=== PATIENT | male | born 1955 | race Caucasian/White ===

== ENCOUNTER 2017-06-26 10:20 | Emergency (ER) | payer OTHER, SELFPAY ==
[2017-06-26] MEDS ORDERED: METHYLPREDNISOLONE 125 MG INJ ONE (11:00)
[2017-06-26] MEDS ORDERED: Magnesium Sulfate 2gm IVPB 2 G/50 ML BAG IV ONE (11:01)
[2017-06-26] MEDS ORDERED: IPRATROPIUM BROM 0.5MG/2.5ML ONE (11:01)
[2017-06-26] MEDS ORDERED: LEVALBUTEROL 1.25 MG/3 ML NEB ONE (11:01)
[2017-06-26 11:52] LABS: Absolute Lymphocytes (CBC) 0.7 K/uL (0.7-4.9); Absolute Monocytes 1.9 K/uL (0.1-1.3); Absolute Neutrophil 8.3 K/uL (1.8-8.0); Basophils % 0.1 % (0-1.3); Bicarbonate 27 mEq/L (21-31); Eosinophils % 0.1 % (0-4.4); Glucose Level 112 mg/dL (65-120); Hematocrit 44.7 % (39.6-49.0); Lymphocytes % 6.1 % (15.3-44.8); MCH 30.1 pg (27.0-35.0); MCV 90.1 fL (80-100); MPV 8.4 fL (7.6-11.3); Monocytes % 17.1 % (3.3-12.3); Potassium 3.7 mEq/L (3.6-5.0); RBC Red Blood Cell Count 4.96 M/uL (4.33-5.43); Sodium Level 126 mEq/L (135-145)
[2017-06-26 11:53] LABS: BUN Blood Urea Nitrogen 6 mg/dL (6-20)
--- NOTE | 2017-06-26 12:17 | RAD REPORT ---
EXAM DESCRIPTION: RAD - Chest Pa And Lat (2 Views) - 06/26/2017 12:10 pm CLINICAL HISTORY: COPD, shortness of breath, history of fall with chest pain COMPARISON: July 2016 TECHNIQUE: PA and lateral views of the chest were obtained. FINDINGS: The lungs are fibrotic as a baseline. Diaphragm is flattened with increased retrosternal s pace. No focal consolidation or mass. Failure not suspected. Interstitial pattern is not significantl y different from 11 months earlier. Heart size is normal and central vasculature is within normal l imits. No pleural effusion or pneumothorax seen. No acute bony finding noted. No aortic abnormalit y. IMPRESSION: Moderate COPD pattern with no focal infiltrate or pneumothorax. Lung markings are not significantly different from July 23, 2016.
--- NOTE | 2017-06-26 12:46 | ER ---
Nurse's Notes [facility] Name: Nghia Courtney Age: 61 yrs Sex: Male : 1955 Arrival Date: 06/26/2017 Time: 10:23 Bed 17 Private MD: Diagnosis: Chronic obstructive pulmonary disease with (acute) exacerbation;Pain in left shoulder;Hyponatremia - chronic Presentation: 06/26 10:27 Presenting complaint: Patient states: I was seen in ER in [place] and after a fall and had la1 negative XRAYs and CT's. They told me to F/U with an ortho doc but I left before my apt so I am here to F/U. I also need my RX for my COPD refilled. Transition of care: patient was not received from another setting of care. Onset of symptoms was June 26, 2017. Care prior to arrival: None. 10:27 Method Of Arrival: Ambulatory la1 10:27 Acuity: HERRERA 3 la1 Triage Assessment: 13:34 General: Appears in no apparent distress. uncomfortable. General: Behavior is calm, em cooperative. Respiratory: the patient has mild shortness of breath. Respiratory: Historical: - Allergies: 10:30 NKDA; la1 - PMHx: 10:30 COPD; la1 - Immunization history:: Adult Immunizations up to date. - Social history:: Smoking status: Patient uses tobacco products, smokes one pack cigarettes per day. Screenin:50 Abuse screen: Denies threats or abuse. em 11:50 Nutritional screening: No deficits noted. Tuberculosis screening: No symptoms or risk em factors identified. Fall Risk None identified. Assessment: 10:50 General: Appears in no apparent distress. uncomfortable, Behavior is calm, cooperative. em General: Reports missed follow up appointment with orthopedic, c/o left shoulder pain, also needs inhaler refilled. Pain: Complains of pain in left shoulder Pain currently is 8 out of 10 on a pain scale. Pain began 1 month ago. Neuro: Level of Consciousness is awake, alert, obeys commands, Oriented to person, place, time, situation. Cardiovascular: Heart tones S1 S2 present Capillary refill < 3 seconds Patient's skin is warm and dry. Rhythm is regular. Respiratory: Reports shortness of breath cough that is productive, Airway is patent Respiratory effort is even, unlabored, Respiratory pattern is regular, symmetrical, Breath sounds with wheezes bilaterally. GI: Abdomen is flat. : No signs and/or symptoms were reported regarding the genitourinary system. EENT: No signs and/or symptoms were reported regarding the EENT system. Derm: Skin is intact, Skin is pink, warm \T\ dry. Musculoskeletal: Range of motion: intact in all extremities. 11:20 Reassessment: Patient appears in no apparent distress at this time. I agree with above iw assessment by Carlos Garza LVN. 11:50 Reassessment: Patient appears in no apparent distress at this time. Patient and/or em family updated on plan of care and expected duration. Pain level reassessed. Patient is alert, oriented x 3, equal unlabored respirations, skin warm/dry/pink. Patient states symptoms have improved. 12:45 Reassessment: Patient appears in no apparent distress at this time. Patient and/or em family updated on plan of care and expected duration. Pain level reassessed. Patient is alert, oriented x 3, equal unlabored respirations, skin warm/dry/pink. 13:00 Reassessment: Patient appears in no apparent distress at this time. awaiting for em magnesium to be completed, pt ready for discharge. Vital Signs: 10:30 BP 143 / 95; Pulse 120; Resp 20; Temp 98.6; Pulse Ox 93% on R/A; Weight 68.04 kg; la1 Height 6 ft. 1 in. (185.42 cm); 10:44 BP 141 / 97; Pulse 124; Resp 20; Pulse Ox 94% on R/A; mh5 11:44 BP 119 / 85; Pulse 119; Resp 22; Pulse Ox 98% ; mh5 12:50 BP 108 / 72; Pulse 117; Resp 20; Pulse Ox 93% on R/A; Pain 0/10; em 10:30 Body Mass Index 19.79 (68.04 kg, 185.42 cm) la1 ED Course: 10:23 Patient arrived in ED. tw3 10:29 Triage completed. la1 10:30 Arm band placed on left wrist. la1 10:41 Carlos Garza LVN is Primary Nurse. em 10:44 Dea Uribe FNP-C is PHCP. kb 10:44 Sarmad De La Vega MD is Attending Physician. kb 12:05 X-ray completed. Patient tolerated procedure well. kp1 12:06 Chest Pa And Lat (2 Views) XRAY In Process Unspecified. EDMS 12:30 Patient has correct armband on for positive identification. Placed in gown. Bed in low em position. Call light in reach. Side rails up X2. 12:30 No provider procedures requiring assistance completed. Inserted saline lock: 20 gauge em in right forearm, using aseptic technique. Blood collected. 12:30 Initial lab(s) drawn, by me, sent to lab. em 13:35 IV discontinued, intact, bleeding controlled, No redness/swelling at site. Pressure em dressing applied. Administered Medications: 11:10 Drug: Xopenex (3) 1.25 mg Route: Inhalation; em 11:50 Follow up: Response: No adverse reaction em 11:10 Drug: AtroVENT Aerosol 0.5 mg Route: Inhalation; em 11:50 Follow up: Response: No adverse reaction em 11:11 Drug: Magnesium Sulfate 2 grams Route: IVPB; Infused Over: 2 hrs; Site: right forearm; iw 13:35 Follow up: IV Status: Completed infusion; IV Intake: 50ml em 11:11 Drug: SOLU-Medrol 125 mg Route: IVP; Site: right forearm; iw 11:51 Follow up: Response: No adverse reaction em Intake: 13:35 IV: 50ml; Total: 50ml. em Outcome: 12:45 Discharge ordered by MD. kb 13:38 Discharged to home ambulatory. em 13:38 Condition: good 13:38 Discharge instructions given to patient, Instructed on discharge instructions, follow up and referral plans. medication usage, Demonstrated understanding of instructions, follow-up care, medications, Prescriptions given X 2. 13:39 Patient left the ED. em Signatures: Dispatcher [employer] EDMS Dea Uribe, MACHINE ROOM ENGINEER-C MACHINE ROOM ENGINEER-Ckb Carlos Garza, MANAGER SKILLED MANAGER SKILLED em Cathryn Restrepo, LORENE PAULSON iw Winston Garcia RN RN la1 Imelda Aguilera Katarina Thomas, Marilu tw3 Gissell Hampton kp1
--- NOTE | 2017-06-26 12:46 | EDPHYS ---
Physician Documentation [facility] Name: Nghia Courtney Age: 61 yrs Sex: Male : 1955 Arrival Date: 06/26/2017 Time: 10:23 Bed 17 Private MD: ED Physician Sarmad De La Vega HPI: 06/26 12:40 This 61 yrs old Male presents to ER via Ambulatory with complaints of Arm kb Pain, Breathing Difficulty. 12:40 The patient has shortness of breath with light activity. Duration: The symptoms are kb chronic. The patient's shortness of breath is aggravated by exertion, is alleviated by nothing. Associated signs and symptoms: Pertinent positives: non-productive cough. Severity of symptoms: At their worst the symptoms were mild moderate in the emergency department the symptoms are unchanged. The patient has experienced similar episodes in the past, chronically. The patient has not recently seen a physician. Pt states he has had shoulder pain for a month that he was given hydrocodone for in [place], but he only has 2 pills left and needs a refill. Also reports he is almost out of his inhaler and needs a new one. . Historical: - Allergies: 10:30 NKDA; la1 - PMHx: 10:30 COPD; la1 - Immunization history:: Adult Immunizations up to date. - Social history:: Smoking status: Patient uses tobacco products, smokes one pack cigarettes per day. ROS: 11:56 Constitutional: Negative for fever, chills, and weight loss, ENT: Negative for injury, kb pain, and discharge, Neck: Negative for injury, pain, and swelling, Cardiovascular: Negative for chest pain, palpitations, and edema, Abdomen/GI: Negative for abdominal pain, nausea, vomiting, diarrhea, and constipation, Back: Negative for injury and pain, : Negative for injury, bleeding, discharge, and swelling, Skin: Negative for injury, rash, and discoloration, Neuro: Negative for headache, weakness, numbness, tingling, and seizure. 11:56 Respiratory: Positive for cough, with no reported sputum, dyspnea on exertion, shortness of breath, wheezing, Negative for hemoptysis, orthopnea, pleurisy. 11:56 MS/extremity: Positive for decreased range of motion, pain, of the anterior aspect of left shoulder. Exam: 12:36 Constitutional: This is a well developed, well nourished patient who is awake, alert, kb and in no acute distress. Head/Face: Normocephalic, atraumatic. ENT: Nares patent. No nasal discharge, no septal abnormalities noted. Tympanic membranes are normal and external auditory canals are clear. Oropharynx with no redness, swelling, or masses, exudates, or evidence of obstruction, uvula midline. Mucous membranes moist. Neck: Trachea midline, no thyromegaly or masses palpated, and no cervical lymphadenopathy. Supple, full range of motion without nuchal rigidity, or vertebral point tenderness. No Meningismus. Chest/axilla: Normal chest wall appearance and motion. Nontender with no deformity. No lesions are appreciated. Cardiovascular: Regular rate and rhythm with a normal S1 and S2. No gallops, murmurs, or rubs. Normal PMI, no JVD. No pulse deficits. Abdomen/GI: Soft, non-tender, with normal bowel sounds. No distension or tympany. No guarding or rebound. No evidence of tenderness throughout. Skin: Warm, dry with normal turgor. Normal color with no rashes, no lesions, and no evidence of cellulitis. Neuro: Awake and alert, GCS 15, oriented to person, place, time, and situation. Cranial nerves II-XII grossly intact. Motor strength 5/5 in all extremities. Sensory grossly intact. Cerebellar exam normal. Normal gait. 12:36 Respiratory: the patient does not display signs of respiratory distress, Respirations: normal, Breath sounds: wheezing: Vital Signs: 10:30 BP 143 / 95; Pulse 120; Resp 20; Temp 98.6; Pulse Ox 93% on R/A; Weight 68.04 kg; la1 Height 6 ft. 1 in. (185.42 cm); 10:44 BP 141 / 97; Pulse 124; Resp 20; Pulse Ox 94% on R/A; mh5 11:44 BP 119 / 85; Pulse 119; Resp 22; Pulse Ox 98% ; mh5 12:50 BP 108 / 72; Pulse 117; Resp 20; Pulse Ox 93% on R/A; Pain 0/10; em 10:30 Body Mass Index 19.79 (68.04 kg, 185.42 cm) la1 MDM: 10:44 Patient medically screened. kb 11:45 Data reviewed: vital signs, nurses notes. Data interpreted: Pulse oximetry: on room air is 94 %. Interpretation: normal. 12:44 Data reviewed: I have discussed the patient's presentation/case with the attending Emergency Department Physician;. Counseling: I had a detailed discussion with the patient and/or guardian regarding: the historical points, exam findings, and any diagnostic results supporting the discharge/admit diagnosis, lab results, radiology results, the need for outpatient follow up, a family practitioner, a orthopedic surgeon, to return to the emergency department if symptoms worsen or persist or if there are any questions or concerns that arise at home. 06/26 11:37 Order name: Basic Metabolic Panel; Complete Time: 11:53 EDMS 06/26 11:37 Order name: CBC with Automated Diff; Complete Time: 12:56 EDMS 06/26 11:37 Order name: D-Dimer; Complete Time: 11:56 EDMS 06/26 10:56 Order name: IV Start; Complete Time: 11:50 kb 06/26 11:40 Order name: Chest Pa And Lat (2 Views) XRAY; Complete Time: 12:23 kb 06/26 12:53 Order name: Manual Differential; Complete Time: 12:56 EDMS Administered Medications: 11:10 Drug: Xopenex (3) 1.25 mg Route: Inhalation; em 11:50 Follow up: Response: No adverse reaction em 11:10 Drug: AtroVENT Aerosol 0.5 mg Route: Inhalation; em 11:50 Follow up: Response: No adverse reaction em 11:11 Drug: Magnesium Sulfate 2 grams Route: IVPB; Infused Over: 2 hrs; Site: right forearm; iw 13:35 Follow up: IV Status: Completed infusion; IV Intake: 50ml em 11:11 Drug: SOLU-Medrol 125 mg Route: IVP; Site: right forearm; iw 11:51 Follow up: Response: No adverse reaction em Disposition: 14:05 Co-signature as Attending Physician, Sarmad De La Vega MD I agree with the assessment and kdr plan of care. Disposition: 06/26/17 12:45 Discharged to Home. Impression: Chronic obstructive pulmonary disease with (acute) exacerbation, Pain in left shoulder, Hyponatremia - chronic. - Condition is Stable. - Discharge Instructions: Chronic Obstructive Pulmonary Disease, Shoulder Pain, [id number]. - Prescriptions for prednisone 10 mg Oral tablet - take 1 tablet by ORAL route 2 times per day for 10 days; 20 tablet. Albuterol Sulfate 90 mcg/actuation - inhale 1-2 puff by INHALATION route every 4-6 hours; 1 Inhaler. - Medication Reconciliation Form, Thank You Letter, Antibiotic Education, Prescription Opioid Use form. - Follow up: Emergency Department; When: As needed; Reason: Worsening of condition. Follow up: Private Physician; When: 2 - 3 days; Reason: Recheck today's complaints, Continuance of care, Re-evaluation by your physician. Signatures: Dispatcher [employer] EDMS Dea Uribe, REHABILITATION ATTENDANT-C REHABILITATION ATTENDANT-Ckb Sarmad De La Vega MD MD kdr Munoz, Edgar, HOG TRADER HOG TRADER em Cathryn Restrepo, LORENE RN iw Winston Garcia RN RN la1 Corrections: (The following items were deleted from the chart) 11:57 11:49 D-DIMER+COAG.LAB.BRZ ordered. EDWI EDMS 11:58 11:49 CBC+H.LAB.BRZ ordered. EDWI EDMS 11:58 11:49 BASIC METABOLIC PANEL+C.LAB.BRZ ordered. EDMS EDMS 12:05 11:43 Chest Pa And Lat (2 Views) ordered. EDWI EDMS
[2017-06-26 12:53] LABS: Blood Morphology Comment NOT SEEN (NOT SEEN); Platelet Estimate ADEQ
[2017-06-26 13:45] VITALS: TEMP 98.6
[2017-06-26 13:48] VITALS: BP 108/72; O2SAT 93
== END 2017-06-26 13:39 | disposition home or self-care (01) ==
LOC: ER 10:20
DX: J44.1 Chronic obstructive pulmonary disease with (acute) exacerbation (principal); E87.1 Hypo-osmolality and hyponatremia; M25.512 Pain in left shoulder; F17.210 Nicotine dependence, cigarettes, uncomplicated
CPT/HCPCS: 36415; 71046; 80048; 85025; 85379; 96365; 96366; 96375; 99284; J2930; J3475

== ENCOUNTER 2017-06-30 19:18 | Emergency (ER) | payer OTHER ==
[2017-06-30] MEDS ORDERED: EPINEPHrine 1 MG/10 ML SYR IV ONE (19:19)
[2017-06-30] MEDS ORDERED: SODIUM CHL 0.9% 1000 ML BAG IV ONE (19:19)
[2017-06-30] MEDS ORDERED: Caclcium Chloride 10% INJ SYR IV ONE (19:19)
[2017-06-30] MEDS ORDERED: DOPAMINE/D5W 400 MG/250 ML BAG IV ONE ×2 (19:37→22:57)
[2017-06-30 20:01] LABS: Arterial Blood Carboxyhemoglob 0.8 % (0-1.5); Blood Gas Oxyhemoglobin 97.7 % (94-97); Blood O2 Saturation 99.1 % (92-98.5)
[2017-06-30 20:16] LABS: Protime INR 1.05
[2017-06-30 20:19] LABS: Absolute Lymphocytes (CBC) 1.3 K/uL (0.7-4.9); Absolute Monocytes 0.9 K/uL (0.1-1.3); Absolute Neutrophil 20.5 K/uL (1.8-8.0); Basophils % 0.1 % (0-1.3); Eosinophils % 0.2 % (0-4.4); Hematocrit 39.7 % (39.6-49.0); Lymphocytes % 5.8 % (15.3-44.8); MCH 30.4 pg (27.0-35.0); MCV 90.6 fL (80-100); MPV 7.2 fL (7.6-11.3); Monocytes % 3.9 % (3.3-12.3); Potassium 2.6 mEq/L (3.6-5.0); RBC Red Blood Cell Count 4.38 M/uL (4.33-5.43)
[2017-06-30 20:25] LABS: Albumin 2.8 g/dL (3.2-5.5); Bilirubin Direct 0.3 mg/dL (0-0.2); Bilirubin Total 0.8 mg/dL (0.3-1.2); Magnesium 2.3 mg/dL (1.8-2.5); Protein, Total 5.6 g/dL (6.0-8.3)
--- NOTE | 2017-06-30 20:31 | RAD REPORT ---
EXAM DESCRIPTION: RAD - Chest Single View - 06/30/2017 8:14 pm CLINICAL HISTORY: Respiratory distress, intubation COMPARISON: June 26 TECHNIQUE: AP portable chest image was obtained 2009 hours . FINDINGS: Fibrotic lung pattern is similar to comparison. No mass, infiltrate or pulmonary edema. He art and vasculature are normal. No measurable pleural effusion and no pneumothorax. Endotracheal tube is in place T3 level 2 cm above the aortic arch. Right subclavian central line is in place with the tip in the mid SVC. Resuscitation paddles overlie the midline chest and left lateral chest. NG tube e xtends below the diaphragm, off the field of view. No acute aortic findings suspected. IMPRESSION: ETT is T3 level 2 cm superior to the aortic arch. ET tube tip extends below the diaphrag m, off the field of view. Right subclavian central line tip is mid SVC. There is no pneumothorax. No acute lung parenchymal process.
[2017-06-30 20:34] LABS: Urine Blood 3+ (NEG); Urine Glucose NEGATIVE (NEG); Urine Protein 3+ (NEG); Urine Specific Gravity >1.030 (1.005-1.030); Urine pH 5.5 (5.0-7.0)
[2017-06-30] MEDS ORDERED: KCL 20 MEQ/100 mL IVPB 20 MEQ/100 ML BAG IV ONE (20:49)
[2017-06-30] MEDS ORDERED: PIPER/TAZO/NS 3.375gm 3.375 GM/100 ML BAG ONE (20:50)
[2017-06-30 21:18] LABS: Arterial Blood Carboxyhemoglob 0.8 % (0-1.5); Blood Gas Oxyhemoglobin 97.5 % (94-97)
--- NOTE | 2017-06-30 21:23 | RAD REPORT ---
EXAM DESCRIPTION: RAD - Abdomen Single View - 06/30/2017 8:55 pm CLINICAL HISTORY: NG tube placement COMPARISON: None. FINDINGS: Tip of the NG tube is in the proximal stomach. The side-port of the tubing is in the dista l esophagus
[2017-06-30 21:29] LABS: Blood Morphology Comment NOT SEEN (NOT SEEN); Platelet Estimate ADEQ; Toxic Granulation 1+
--- NOTE | 2017-06-30 21:48 | EDPHYS ---
Physician Documentation [facility] Name: Nghia Courtney Age: 61 yrs Sex: Male : 1955 Arrival Date: 06/30/2017 Time: 19:32 Bed 3 Private MD: ED Physician Len Mcclain HPI: 06/30 22:14 This 61 yrs old Male presents to ER via EMS with complaints of CPR. gs 22:14 Preceding the arrest, the patient collapsed. The arrest occurred at home. Pre-hospital gs course: Bystanders at the scene performed CPR. EMS care prior to arrival: oxygen. It is unknown whether or not the patient has had similar symptoms in the past. Historical: - PMHx: 22:17 COPD; ADD/ADHD; gs - Immunization history:: Adult Immunizations unknown. - Social history:: Smoking status: unknown. ROS: 22:17 Unable to obtain ROS due to patient distress. gs Exam: 22:17 Head/Face: Normocephalic, atraumatic. Eyes: Pupils equal round and reactive to light, gs extra-ocular motions intact. Lids and lashes normal. Conjunctiva and sclera are non-icteric and not injected. Cornea within normal limits. Periorbital areas with no swelling, redness, or edema. 22:17 Neck: Trachea midline, no thyromegaly or masses palpated, and no cervical lymphadenopathy. Supple, full range of motion without nuchal rigidity, or vertebral point tenderness. No Meningismus. Chest/axilla: Normal chest wall appearance and motion. Nontender with no deformity. No lesions are appreciated. 22:17 Back: No spinal tenderness. No costovertebral tenderness. Full range of motion. 22:17 Constitutional: The patient appears alert, awake. 22:17 ENT: Mouth: Oral mucosa: moist, sarah tube in place. 22:17 Cardiovascular: Pulses: not palpable. 22:17 Respiratory: Breath sounds: decreased breath sounds, are located in both bases, with bagging through sarah tube. 22:17 Abdomen/GI: Inspection: abdomen appears normal, Palpation: soft. 22:17 Skin: Appearance: Color: gali, Temperature: warm. 22:17 Neuro: Orientation: unable to test, the patient is comatose. 22:24 ECG was reviewed by the Attending Physician. gs 22:25 ECG was reviewed by the Attending Physician. gs Vital Signs: 19:25 Pulse 134; fc 19:26 BP 185 / 133; Pulse 157; Resp 20; Pulse Ox 98% on ETT ambu; Pain 0/10; fc 19:29 BP 177 / 100; Pulse 168; Pulse Ox 99% on ETT ambu; fc 19:30 BP 137 / 89; Pulse 131; Resp 26; Pulse Ox 100% on ETT ambu; fc 19:32 BP 86 / 68; Pulse 115; Resp 22; Pulse Ox 100% on ETT ambu; fc 19:48 BP 117 / 69; Pulse 102; Resp 14; Pulse Ox 100% on 100% FiO2 ETT vent; fc 19:53 BP 125 / 76; Pulse 95; Resp 14; Pulse Ox 100% on 100% FiO2 ETT vent; fc 20:33 BP 140 / 86; Pulse 87; Resp 12 A; Temp 91.8(C); Pulse Ox 100% on ETT vent; jd3 21:09 BP 139 / 89; Pulse 89; Resp 17 S; Pulse Ox 100% on R/A; jd3 21:57 BP 149 / 91; Pulse 89; Resp 17 A; Temp 94.7(C); Pulse Ox 100% on ETT vent; jd3 22:44 BP 151 / 86; Pulse 115; Resp 19 A; Temp 96.0(C); Pulse Ox 95% on ETT vent; jd3 Ventilator: 19:32 Fi02: 100%; Rate: 16min; T.V.: 500ml; Peep: 0cm; Mode: CMV; ET tube: 7.5 mm (Oral); fc 19:49 Fi02: 100%; Rate: 20min; T.V.: 500ml; Peep: 0cm; Mode: CPAP; ET tube: 7.5 mm (Oral); fc Procedures: 22:17 Cardioversion: (synchronized) for treatment of A fib, with 100 joules X 1. Post gs procedure rhythm is sinus rhythm, the patient tolerated the procedure well. CPR: See CPR flow sheet. Intubation: Ventilated with 100% NRB prior to procedure. Intubated orally using # 4 Shai blade with 7.5 mm ETT. was successful on first attempt. Ventilated with Ambu bag. ventilator. Tube secured with ETT azul Placement verified by CXR, CO2 detector with (+) color change, auscultating bilateral breath sounds, O2 saturation after procedure was 100 %. Patient tolerated well. Central Line: the site was prepped with in sterile fashion, a triple lumen catheter was inserted, in the right subclavian vein, in 1 attempts. placement was verified, by CXR, by blood return, the site was dressed with Tegaderm, using sterile technique, the patient tolerated the procedure, well. Ultrasound: Type: Fast exam, performed by the emergency department physician. MDM: 19:32 Patient medically screened. gs 22:17 Differential diagnosis: arrythmia, cardiac arrest, respiratory arrest, sepsis. Data gs reviewed: vital signs, nurses notes. Response to treatment: the patient's symptoms have markedly improved after treatment. 06/30 19:32 Order name: Basic Metabolic Panel; Complete Time: 21:23 gs 06/30 19:32 Order name: CBC with Diff; Complete Time: 21:45 gs 06/30 19:32 Order name: LFT's; Complete Time: 21:23 gs 06/30 19:32 Order name: Magnesium; Complete Time: 21:23 gs 06/30 19:32 Order name: PT-INR; Complete Time: 20:31 gs 06/30 19:32 Order name: Troponin (emerg Dept Use Only); Complete Time: 20:31 gs 06/30 19:32 Order name: XRAY Chest (1 view); Complete Time: 21:23 gs 06/30 20:01 Order name: ABG Arterial Blood Gas; Complete Time: 20:31 EDMS 06/30 20:24 Order name: Manual Differential; Complete Time: 21:45 EDMS 06/30 20:30 Order name: Urine Dipstick--Ancillary (enter results); Complete Time: 21:23 rg2 06/30 20:32 Order name: Blood Culture* gs 06/30 20:32 Order name: Lactate; Complete Time: 21:45 gs 06/30 20:37 Order name: ABG; Complete Time: 21:23 gs 06/30 20:30 Order name: Abdomen 1 View XRAY; Complete Time: 21:45 gs 06/30 19:32 Order name: EKG; Complete Time: 19:33 gs 06/30 19:32 Order name: Cardiac monitoring; Complete Time: 20:02 gs 06/30 19:32 Order name: EKG - Nurse/Tech; Complete Time: 20:02 gs 06/30 19:32 Order name: IV Saline Lock; Complete Time: 20:03 06/30 19:32 Order name: Labs collected and sent; Complete Time: 20: 06/30 19:32 Order name: O2 Per Protocol; Complete Time: 20: 06/30 19:32 Order name: O2 Sat Monitoring; Complete Time: 20:29 06/30 19:32 Order name: Urine Dipstick-Ancillary (obtain specimen); Complete Time: 20: 06/30 20:30 Order name: Carroll; Complete Time: 20:30 jd3 06/30 20:30 Order name: NG Tube; Complete Time: 20:30 jd3 EC:24 Rate is 165 beats/min. Rhythm is irregular. QRS interval is normal. QT interval is gs normal. Clinical impression: Atrial Fibrillation. Interpreted by me. 22:25 Rate is 133 beats/min. Rhythm is regular. DE interval is normal. QRS interval is gs normal. QT interval is normal. T waves are Flattened. Clinical impression: NSR w/ Non-specific ST/T Changes and Sinus tachycardia. Interpreted by me. Administered Medications: 19:20 Drug: EPINEPHrine 0.1mg/mL 1:10,000 1 mg {Note: per Cathryn RN.} Route: IVP; Site: left antecubital; 22:36 Follow up: Response: No adverse reaction jd3 19:22 Drug: EPINEPHrine 0.1mg/mL 1:10,000 1 mg {Note: per Cathryn RN.} Route: IVP; Site: left antecubital; 22:36 Follow up: Response: No adverse reaction jd3 19:24 Drug: NS 0.9% 1000 ml {Note: per Cathryn RN.} Route: IV; Rate: 1 bolus; Site: left antecubital; 22:36 Follow up: Response: No adverse reaction; IV Status: Completed infusion; IV Intake: jd3 1000ml 19:24 Drug: EPINEPHrine 0.1mg/mL 1:10,000 1 mg {Note: per Cathryn RN.} Route: IVP; Site: left antecubital; 22:37 Follow up: Response: No adverse reaction jd3 19:24 Drug: Sodium Bicarbonate 1 amp {Note: per Cathryn RN.} Route: IVP; Site: left antecubital; 22:37 Follow up: Response: No adverse reaction jd3 19:37 Drug: NS 0.9% 1000 ml {Note: per Pardeep RN.} Route: IV; Rate: 1 bolus; Site: left fc antecubital; 22:38 Follow up: Response: No adverse reaction; IV Status: Completed infusion; IV Intake: jd3 1000ml 19:40 Drug: Dopamine drip 5 mcg/kg/min - (DOPamine 400 mg, D5W 250 ml) {Note: started at 20 fc mcg/kg/min per Mcclain order. Hung by Pardeep Paulson.} Route: IV; Rate: calculated rate; Site: left antecubital; 22:39 Follow up: Response: No adverse reaction; Rate change 15 mcg/kg/min; IV Status: jd3 Infusion continued upon transfer 19:42 Drug: Calcium Chloride 1 grams {Note: per Cathryn PAULSON.} Route: IVP; Site: left antecubital; 22:40 Follow up: Response: No adverse reaction jd3 19:43 Drug: Sodium Bicarbonate 1 amp {Note: per Cathryn PAULSON.} Route: IVP; Site: left antecubital; 22:38 Follow up: Response: No adverse reaction jd3 21:08 Drug: Potassium Chloride 10 mEq Route: IV; Rate: calculated rate; Site: right jd3 subclavian; 22:41 Follow up: Response: No adverse reaction; IV Status: Completed infusion jd3 21:08 Drug: Zosyn 3.375 grams Route: IVPB; Infused Over: 60 mins; Site: right subclavian; jd3 21:56 Follow up: Response: No adverse reaction; IV Status: Completed infusion jd3 21:56 Drug: NS 0.9% 500 ml Route: IV; Rate: bolus; Site: right subclavian; jd3 22:28 Follow up: IV Status: Completed infusion; IV Intake: 500ml jd3 22:11 Drug: fentaNYL (PF) 100 mcg Route: IVP; Site: right subclavian; jd3 22:41 Follow up: Response: No adverse reaction jd3 22:11 Drug: Versed 2 mg Route: IVP; Site: right subclavian; jd3 22:42 Follow up: Response: Patient is sedated jd3 22:29 Drug: NS 0.9% 1000 ml Route: IV; Rate: 125 ml/hr; Site: right subclavian; jd3 22:35 Follow up: IV Status: Infusion continued upon transfer jd3 22:35 Drug: Versed 2 mg Route: IVP; Site: right subclavian; jd3 22:43 Follow up: Response: Patient is sedated jd3 23:00 Drug: Versed 5 mg Route: IVP; Site: right subclavian; jd3 23:12 Follow up: Response: No adverse reaction; Patient is sedated j Point of Care Testing: Blood Glucose: 19:21 Blood Glucose: 129 mg/dL; fc Ranges: Critical Glucose Levels:Adult <50 mg/dl or >400 mg/dl <40 mg/dl or >180 mg/dl Disposition: 22:17 Critical Care:. gs Disposition: 06/30/17 21:47 Transfer ordered to Other Acute Care Facility. Diagnosis is Cardiac arrest. - Reason for transfer: Higher level of care. - Accepting physician is adamu. - Condition is Stable. - Problem is new. - Symptoms have improved. Critical care time excluding procedures: 22:17 Critical care time: Bedside Care: 10 minutes, Consultation: 10 minutes, Family gs Intervention: 10 minutes. Total time: 30 minutes Signatures: Dispatcher [employer] Migdalia Brown RN RN fc Starr, Gregory, MD MD gs Davies, Jonathon, RN RN jd3 Corrections: (The following items were deleted from the chart) 20:34 20:29 URINE DIPSTICK--ANCILLARY+U.LAB.BRZ ordered. EDMS EDMS
--- NOTE | 2017-06-30 21:48 | ER ---
Nurse's Notes [facility] Name: Nghia Courtney Age: 61 yrs Sex: Male : 1955 Arrival Date: 06/30/2017 Time: 19:32 Bed 3 Private MD: Diagnosis: Cardiac arrest Presentation: 06/30 19:18 Presenting complaint: EMS states: that pt came out of his house telling bystander that fc he needed them to call 911. Upon arrival of tank officer CPR was started. When EMS arrived that continued CPR and came to ER CPR in progress. Care prior to arrival: Assisted ventilation, per Bishop Tube CPR via thumper performed by EMS was defibrillated Glucose check: 124. Compressions began at 18:48. 19:18 Method Of Arrival: EMS: [facility] fc 19:18 Acuity: HERRERA 1 fc 19:18 Transition of care: patient was not received from another setting of care. Onset of fc symptoms was June 30, 2017 at 18:48. Initial Sepsis Screen: Does the patient meet any 2 criteria? Systolic BP < 90 mmHg. Altered Mental Status. Yes Does the patient have a suspected source of infection? No. Patient's initial sepsis screen is negative. Historical: - PMHx: 22:17 COPD; ADD/ADHD; gs - Immunization history:: Adult Immunizations unknown. - Social history:: Smoking status: unknown. Screenin:46 Abuse screen: unknown. Nutritional screening: unknown. Tuberculosis screening: No jd3 symptoms or risk factors identified. Fall Risk Total Rojas Fall Scale indicates High Risk Score (45 or more points). Fall prevention measures have been instituted. Side Rails Up X 2 Placed Close to Nursing Station Frequent Obs/Assessments Occuring. Assessment: 19:18 CPR assessment: unresponsive, pupils fixed \\T\\ dilated, no respiratory effort, intubated, fc Ambu ventilation, pale. Cardiac rhythm is PEA. 19:20 General: Appears distressed, Behavior is unresponsive. Pain: Unable to use pain scale. jd3 Patient is intubated. Patient is unresponsive. Neuro: Level of Consciousness is unresponsive, Oriented to none Pupils are fixed, dilated. Cardiovascular: Rhythm is PEA. Respiratory: Airway via oral intubation Breath sounds with wheezes bilaterally. GI: Abdomen is round. Derm: Skin is intact, Skin is dry, Skin is pale, Skin temperature is cool. 19:21 Reassessment: pulse check shows PEA, continued CPR. jd3 19:23 Reassessment: pulse check shows PEA continue CPR. jd3 20:20 Reassessment: Patient and/or family updated on plan of care and expected duration. Pain jd3 level reassessed. 20:20 Cardiovascular: Rhythm is sinus rhythm. Respiratory: Airway via oral intubation. jd3 20:20 Cardiovascular: Pulses are palpable in right radial artery and left radial artery. jd3 20:25 Reassessment: RT moved advanced Et tube per MD's orders, "23 at the teeth". jd3 21:09 Reassessment: No changes from previously documented assessment. Patient and/or family jd3 updated on plan of care and expected duration. Pain level reassessed. 22:01 Reassessment: No changes from previously documented assessment. Patient and/or family jd3 updated on plan of care and expected duration. Pain level reassessed. 22:05 Cardiovascular: Pulses are palpable in right radial artery and left radial artery jd3 Rhythm is sinus rhythm. 22:43 Reassessment: Patient appears in no apparent distress at this time. No changes from jd3 previously documented assessment. Patient and/or family updated on plan of care and expected duration. Pain level reassessed. report given to Poppy PAULSON at [facility] and life flight. 22:50 Reassessment: pt having seizure-like activity, provider notified, no new orders at this jd3 time. 23:09 Reassessment: Patient appears in no apparent distress at this time. No changes from jd3 previously documented assessment. Patient and/or family updated on plan of care and expected duration. Pain level reassessed. assisted life flight in transferring pt from bed to stretcher, report given. provider notified of continued intermittent seizure-like activity, no new orders at this time. 23:10 Cardiovascular: Pulses are palpable in right radial artery and left radial artery jd3 Rhythm is sinus rhythm. Vital Signs: 19:25 Pulse 134; fc 19:26 BP 185 / 133; Pulse 157; Resp 20; Pulse Ox 98% on ETT ambu; Pain 0/10; fc 19:29 BP 177 / 100; Pulse 168; Pulse Ox 99% on ETT ambu; fc 19:30 BP 137 / 89; Pulse 131; Resp 26; Pulse Ox 100% on ETT ambu; fc 19:32 BP 86 / 68; Pulse 115; Resp 22; Pulse Ox 100% on ETT ambu; fc 19:48 BP 117 / 69; Pulse 102; Resp 14; Pulse Ox 100% on 100% FiO2 ETT vent; fc 19:53 BP 125 / 76; Pulse 95; Resp 14; Pulse Ox 100% on 100% FiO2 ETT vent; fc 20:33 BP 140 / 86; Pulse 87; Resp 12 A; Temp 91.8(C); Pulse Ox 100% on ETT vent; jd3 21:09 BP 139 / 89; Pulse 89; Resp 17 S; Pulse Ox 100% on R/A; jd3 21:57 BP 149 / 91; Pulse 89; Resp 17 A; Temp 94.7(C); Pulse Ox 100% on ETT vent; jd3 22:44 BP 151 / 86; Pulse 115; Resp 19 A; Temp 96.0(C); Pulse Ox 95% on ETT vent; jd3 ED Course: 19:18 Arm band placed on right wrist. Patient placed in an exam room, on a stretcher, on fc oxygen, on athletic monitor, on pulse oximetry. 19:18 Patient has correct armband on for positive identification. Bed in low position. fc radiation monitor on. Pulse ox on. NIBP on. 19:19 Inserted saline lock: 20 gauge in left antecubital area, using aseptic technique. fc ,using aseptic technique. by Cathryn PAULSON. 19:27 Assisted provider with intubation using 7.5 mm ETT via oral route. ET tube secured at fc 21cm at the teeth. Set up intubation tray. Intubated by Len Mcclain MD Placement verified by CXR, CO2 detector w/ + color change, auscultating bilateral breath sounds, Patient tolerated well. Bishop tube removed prior to placing ETT. 19:28 EKG done, by ED staff, reviewed by Len Mcclain MD. fc 19:29 Assist provider with cardioversion (synchronized) for treatment of A fib with 100 fc joules Set up for procedure. Performed by Len Mcclain MD Monitored with athletic monitor, pulse ox, Post procedure rhythm is ST. 19:30 EKG done, by ED staff, reviewed by Len Mcclain MD. fc 19:32 Patient arrived in ED. rg2 19:32 Len Mcclain MD is Attending Physician. gs 19:35 NGT: inserted 16 Fr. other orally verified placement of air over stomach, verified fc return of gastric contents, clamped at this time. 19:46 Triage completed. fc 19:55 Initial lab(s) drawn, by ED staff, sent to lab. fc 19:55 Assisted provider with central line placement. Set up central line tray. Triple lumen fc line placed in right subclavian. Line placed by Len Mcclain MD Placement verified by CXR, blood return, Dressed with Tegaderm, Blood was collected. 20:02 Vannessa Jarquin, RN is Primary Nurse. lp1 20:13 XRAY Chest (1 view) In Process Unspecified. EDMS 20:15 Carroll cath inserted, using sterile technique, 16 Fr., by ky, balloon inflated, to jd3 gravity drainage, urine specimen collected. 20:33 Primary Nurse role handed off by Vannessa Jarquin, RN jd3 20:33 Reid Lopez RN is Primary Nurse. jd3 20:54 X-ray completed. Portable x-ray completed in exam room. Patient tolerated procedure ag1 well. 20:55 Abdomen 1 View XRAY In Process Unspecified. EDMS 23:15 Patient transferred, IV remains in place. jd3 Administered Medications: 19:20 Drug: EPINEPHrine 0.1mg/mL 1:10,000 1 mg {Note: per Cathryn RN.} Route: IVP; Site: left fc antecubital; 22:36 Follow up: Response: No adverse reaction jd3 19:22 Drug: EPINEPHrine 0.1mg/mL 1:10,000 1 mg {Note: per Cathryn RN.} Route: IVP; Site: left fc antecubital; 22:36 Follow up: Response: No adverse reaction jd3 19:24 Drug: NS 0.9% 1000 ml {Note: per Cathryn RN.} Route: IV; Rate: 1 bolus; Site: left fc antecubital; 22:36 Follow up: Response: No adverse reaction; IV Status: Completed infusion; IV Intake: jd3 1000ml 19:24 Drug: EPINEPHrine 0.1mg/mL 1:10,000 1 mg {Note: per Cathryn RN.} Route: IVP; Site: left fc antecubital; 22:37 Follow up: Response: No adverse reaction jd3 19:24 Drug: Sodium Bicarbonate 1 amp {Note: per Cathryn RN.} Route: IVP; Site: left antecubital; 22:37 Follow up: Response: No adverse reaction jd3 19:37 Drug: NS 0.9% 1000 ml {Note: per Pardeep RN.} Route: IV; Rate: 1 bolus; Site: left fc antecubital; 22:38 Follow up: Response: No adverse reaction; IV Status: Completed infusion; IV Intake: jd3 1000ml 19:40 Drug: Dopamine drip 5 mcg/kg/min - (DOPamine 400 mg, D5W 250 ml) {Note: started at 20 fc mcg/kg/min per Dr Mcclain order. Hung by Pardeep Paulson.} Route: IV; Rate: calculated rate; Site: left antecubital; 22:39 Follow up: Response: No adverse reaction; Rate change 15 mcg/kg/min; IV Status: jd3 Infusion continued upon transfer 19:42 Drug: Calcium Chloride 1 grams {Note: per Cathryn RN.} Route: IVP; Site: left antecubital; 22:40 Follow up: Response: No adverse reaction jd3 19:43 Drug: Sodium Bicarbonate 1 amp {Note: per Cathryn RN.} Route: IVP; Site: left antecubital; 22:38 Follow up: Response: No adverse reaction jd3 21:08 Drug: Potassium Chloride 10 mEq Route: IV; Rate: calculated rate; Site: right jd3 subclavian; 22:41 Follow up: Response: No adverse reaction; IV Status: Completed infusion jd3 21:08 Drug: Zosyn 3.375 grams Route: IVPB; Infused Over: 60 mins; Site: right subclavian; jd3 21:56 Follow up: Response: No adverse reaction; IV Status: Completed infusion jd3 21:56 Drug: NS 0.9% 500 ml Route: IV; Rate: bolus; Site: right subclavian; jd3 22:28 Follow up: IV Status: Completed infusion; IV Intake: 500ml jd3 22:11 Drug: fentaNYL (PF) 100 mcg Route: IVP; Site: right subclavian; jd3 22:41 Follow up: Response: No adverse reaction jd3 22:11 Drug: Versed 2 mg Route: IVP; Site: right subclavian; jd3 22:42 Follow up: Response: Patient is sedated jd3 22:29 Drug: NS 0.9% 1000 ml Route: IV; Rate: 125 ml/hr; Site: right subclavian; jd3 22:35 Follow up: IV Status: Infusion continued upon transfer jd3 22:35 Drug: Versed 2 mg Route: IVP; Site: right subclavian; jd3 22:43 Follow up: Response: Patient is sedated jd3 23:00 Drug: Versed 5 mg Route: IVP; Site: right subclavian; jd3 23:12 Follow up: Response: No adverse reaction; Patient is sedated jd3 Point of Care Testing: Blood Glucose: 19:21 Blood Glucose: 129 mg/dL; fc Ranges: Intake: 22:28 IV: 500ml; Total: 500ml. jd3 22:36 IV: 1000ml; Total: 1500ml. jd3 22:38 IV: 1000ml; Total: 2500ml. jd3 Ventilator: 19:32 Fi02: 100%; Rate: 16min; T.V.: 500ml; Peep: 0cm; Mode: CMV; ET tube: 7.5 mm (Oral); fc 19:49 Fi02: 100%; Rate: 20min; T.V.: 500ml; Peep: 0cm; Mode: CPAP; ET tube: 7.5 mm (Oral); fc Outcome: 19:25 Outcome Resuscitation successful jd3 21:47 ER care complete, transfer ordered by . 23:14 Transferred by helicopter to other acute care facility, Transfer form completed. X-rays jd3 sent w/ patient. [facility]: [facility] 23:14 Condition: stable 23:14 Instructed on the need for transfer, Demonstrated understanding of instructions. 23:30 Patient left the ED. jd3 Signatures: Dispatcher [employer] EDSalas Banks2 Migdalia Mosre RN RN Vannessa Desir RN RN lp1 Tere Lang ag1 Len Mcclain MD MD Reid Lopez RN RN jd3 Corrections: (The following items were deleted from the chart) 20:01 19:27 Assisted provider with intubation using 7.5 mm ETT via oral route. ET tube fc secured at 21cm at the teeth. Set up intubation tray. Intubated by Len Mcclain MD Placement verified by CXR, CO2 detector w/ + color change, auscultating bilateral breath sounds, Patient tolerated fc : 20:20 Reassessment: Patient and/or family updated on plan of care and expected jd3 duration. Pain level reassessed. jd3 22:01 Reassessment: No changes from previously documented assessment. Patient and/or jd3 family updated on plan of care and expected duration. Pain level reassessed. jd3 23:09 Reassessment: Patient appears in no apparent distress at this time. No changes jd3 from previously documented assessment. Patient and/or family updated on plan of care and expected duration. Pain level reassessed. assisted life flight in transferring pt from bed to stretcher, report given jd3
[2017-06-30] MEDS ORDERED: NA CHLORIDE 0.9% 1,000 ML ONE (21:52)
[2017-06-30] MEDS ORDERED: MIDAZOLAM HCL 2 MG/2 ML INJ ONE ×3 (21:52→22:52)
[2017-06-30] MEDS ORDERED: FENTANYL CITR 100 MCG/2 ML ONE (22:03)
[2017-06-30 23:46] VITALS: BP 151/86; TEMP 96; O2SAT 95
--- NOTE | 2017-07-01 09:16 | EKG ---
Test Date: 2017-06-30 Test Time: 19:28:19 Director Data Processing: REYNALDO MEASUREMENT RESULTS: Intervals: Rate: 165 [place]: QRSD: 88 QT: 292 QTc: 483 [place]: P: [place]: QRS: 87 T: 236 INTERPRETIVE STATEMENTS: Atrial fibrillation with rapid ventricular response Marked ST abnormality, possible anterolateral subendocardial injury Abnormal ECG Compared to ECG 09/28/2011 08:37:26 ST (T wave) deviation now present Sinus rhythm no longer present Incomplete right bundle-branch block no longer present Electronically Signed On 07-01-17 09:14:08 CDT by Trae Lu
--- NOTE | 2017-07-01 09:16 | EKG ---
Test Date: 2017-06-30 Test Time: 19:29:25 [employer] Consultant: REYNALDO MEASUREMENT RESULTS: Intervals: Rate: 133 [place]: 146 QRSD: 92 QT: 296 QTc: 440 [place]: P: 83 [place]: 146 QRS: 89 T: 75 INTERPRETIVE STATEMENTS: Sinus tachycardia Incomplete right bundle branch block Nonspecific ST abnormality Abnormal ECG Compared to ECG 06/30/2017 19:28:19 Incomplete right bundle-branch block now present Atrial fibrillation no longer present ST (T wave) deviation still present Electronically Signed On 07-01-17 09:14:05 CDT by Trae Lu
== END 2017-06-30 23:30 ==
LOC: ER 19:18
PROC: 5A2204Z Restoration of Cardiac Rhythm, Single (ICD-10-PCS; principal; 2017-06-30)
PROC: 0BH17EZ Insertion of Endotracheal Airway into Trachea, Via Natural or Artificial Opening (ICD-10-PCS; 2017-06-30)
PROC: 5A1935Z Respiratory Ventilation, Less than 24 Consecutive Hours (ICD-10-PCS; 2017-06-30)
PROC: 05H733Z Insertion of Infusion Device into Right Axillary Vein, Percutaneous Approach (ICD-10-PCS; 2017-06-30)
DX: I46.9 Cardiac arrest, cause unspecified (principal); J44.9 Chronic obstructive pulmonary disease, unspecified
CPT/HCPCS: 31500; 36415; 51702; 71045; 74018; 80048; 80076; 81003; 82805; 83605; 83735; 84484; 85025; 85610; 87040; 92950; 92960; 93005; 94002; 99291; 99292; J0171; J1265; J2250; J2543; J3010; J7030